=== PATIENT | female | born 1955 | race Caucasian/White ===

== ENCOUNTER 2020-05-07 17:55 | Emergency (ER) | payer OTHER, SELFPAY ==
--- NOTE | 2020-05-07 18:06 | ED.GENADULT ---
HPI - General Adult General Chief complaint: Urogenital-Female Stated complaint: cramps/freq urination Time Seen by Provider: 05/07/20 18:15 Source: patient and RN notes reviewed Mode of arrival: ambulatory Limitations: no limitations History of Present Illness HPI narrative: 64-year-old female presents with urinary complaints for 1 day. Dysuria consist of diffused intermittent lower abdominal pain, burning, frequency, and urgency.? Echo says she applied a heating pad to lower abdomen for relief and fell asleep on 05/06/20 causing edwards to abdomen. Heating pad gave little to no relief. Has non-tender and tender areas to abdomen. No smoke inhalation. No foreign body sensation. History of Neuropathy per Echo. Denies fever or chills. No significant pelvic pain. No vaginal discharge.? No concerns for STDs. Exacerbating factor urinating.? Denies hematuria or vaginal bleeding. Denies being , LMP post menopausal. No flank pain. Denies nausea and vomiting. No throat or tongue swelling. Tolerating liquids well. Remains active. The patient reports she have not been diagnosed with COVID-19. The patient reports she is not waiting for the results of a COVID-19 lab test. The patient reports she do not have fever, weakness, or fatigue. The patient reports she do not have a new or worsening cough or shortness of breath. Denies chest pain. The patient reports she do not have any rhinorrhea, congestion, sore throat, loss of taste, and diarrhea. Denies recent traveling. Denies concerns for COVID-19 or exposures been home with limited outdoor exposure except for essential household needs and return home. At this time, patient is not suspected of having COVID-19. Some parts of this dictation were generated by voice recognition software and may contain typographical and/or grammatical inaccuracies. Related Data Home Medications Medication Instructions Recorded Confirmed amiodarone 200 mg DAILY 05/07/20 05/07/20 apixaban [Eliquis] 5 mg BID 05/07/20 05/07/20 atorvastatin 40 mg DAILY 05/07/20 05/07/20 ergocalciferol (vitamin D2) 1 unit WEEKLY 05/07/20 05/07/20 [Vitamin D2] glimepiride 2 mg BID 05/07/20 05/07/20 hydrochlorothiazide 12.5 mg DAILY 05/07/20 05/07/20 lisinopril 20 mg DAILY 05/07/20 05/07/20 metoprolol tartrate 100 mg BID 05/07/20 05/07/20 sitagliptin-metformin [Janumet] 1 tablet BID 05/07/20 05/07/20 Allergies Allergy/AdvReac Type Severity Reaction Status Date / Time No Known Allergies Allergy Verified 05/07/20 17:57 Review of Systems Review of Systems: Narrative: CONSTITUTIONAL: Denies fever, chills, sweats. EYES: Denies visual changes, redness, discharge. ENT: Denies rhinorrhea, congestion, sore throat, otalgia. CARDIOVASCULAR: Denies chest pain, palpitations, edema. RESPIRATORY: Denies dyspnea, wheezing, cough. GASTROINTESTINAL: Complains of intermittent lower abdominal pain. Denies nausea, vomiting, diarrhea. GENITOURINARY: Complains of dysuria (burning, frequency, and urgency). Denies hematuria, abnormal discharge. SKIN: Denies rash or itching. Complains of edwards to abdomen with blisters , no drainage. MUSCULOSKELETAL: Denies acute back pain, joint pain, or myalgia. NEUROLOGIC: Denies numbness or focal weakness. PSYCHIATRIC: Denies anxiety or depression. All systems reviewed & are unremarkable except as noted in HPI and below. [facility] Past Medical History Medical History (Updated 05/08/20 @ 00:00 by Margi Azar) Amputation of toe of left foot Atrial fibrillation Diabetes Ex-smoker Hammertoe of second toe of right foot Left also Hypercholesteremia Hypertension Obesity Osteomyelitis Shoulder fracture, right Vitamin D deficiency Surgical History Surgical History (Updated 05/07/20 @ 19:01 by ALEKSANDRA Gilliland) History of bunionectomy Bilateral second toes History of cardiac radiofrequency ablation X2-a year apart for A. fib History of shoulder surgery Right Histor
[2020-05-07 18:14] VITALS: BP 164/72; PULSE 84; RESP 20; TEMP 36.6; O2SAT 100
[2020-05-07] MEDS: SILVER SULFADIAZINE 1% CR 50 GM JAR (*BKC) 1 APPLIC TOPICAL (18:36)
--- NOTE | 2020-05-07 18:38 | PC.NURSE ---
4 second degree edwards to abdomen cleansed with technicare and silvadene no stick telf and abd dressing applied
== END 2020-05-07 18:48 | disposition home or self-care (01) ==
PROVIDERS: Emergency Provider Nurse Practitioner Family; PCP Nurse Practitioner Adult Health
DX: R30.0 Dysuria (principal); T21.22XA Burn of second degree of abdominal wall, initial encounter; B36.9 Superficial mycosis, unspecified; I48.91 Unspecified atrial fibrillation; E11.9 Type 2 diabetes mellitus without complications; E78.00 Pure hypercholesterolemia, unspecified; I10 Essential (primary) hypertension; E66.9 Obesity, unspecified; Z68.43 Body mass index [BMI] 50.0-59.9, adult; E55.9 Vitamin D deficiency, unspecified; Z89.422 Acquired absence of other left toe(s); Z87.891 Personal history of nicotine dependence
CPT/HCPCS: 16020; 81003; 87077; 87086; 87088; 87186; 99213; A9270; G0463